=== PATIENT | male | born 1980 | race American Indian/Alaskan Native ===

== ENCOUNTER 2018-11-13 08:25 | Day surgery (SDC) | payer BC ==
--- NOTE | 2018-11-13 09:38 | Anesthesia Consultation ---
Anesthesia Consult and Med Hx Date of service: 11/13/18 - Airway Anesthetic Teeth Evaluation: Good ROM Head & Neck: Adequate Mental/Hyoid Distance: Adequate Mallampati Class: Class II Intubation Access Assessment: Good - Pulmonary Exam CTA: Yes - Cardiac Exam Cardiac Exam: No Murmur - Pre-Operative Health Status ASA Pre-Surgery Classification: ASA2 Proposed Anesthetic Plan: General - Pulmonary Hx Smoking: Yes (SMOKED OFF/ON X20YRS STOPPED 3YRS AGO) Hx Sleep Apnea: Yes (DOES NOT USE CPAP) - Cardiovascular System Hx Hypertension: Yes - Other Systems Hx Cancer: No
--- NOTE | 2018-11-13 09:38 | Anesthesia Day of Surgery ---
Anesthesia Day of Surgery - Day of Surgery Patient Examined: Yes Patient H&P Reviewed: Yes Patient is NPO: Yes
[2018-11-13] MEDS ORDERED: PEPCID IV NR (10:00)
[2018-11-13] MEDS ORDERED: LACTATED RINGERS 1,000 ML IV SCH (10:00)
[2018-11-13] MEDS ORDERED: ANCEF/STERILE WATER 2 GM/20 ML IV NR (10:00)
[2018-11-13] MEDS ORDERED: VERSED IV NR (10:00)
[2018-11-13] MEDS ORDERED: SUBLIMAZE ONE ×2 (10:25→10:26)
[2018-11-13] MEDS ORDERED: XYLOCAINE MPF 2% ONE (10:25)
[2018-11-13] MEDS ORDERED: DIPRIVAN 10 MG/ML IV ONE (10:26)
[2018-11-13] MEDS ORDERED: OMNIPAQUE (300 MG) IR ONE (11:11)
[2018-11-13 12:22] VITALS: BP 126/61
--- NOTE | 2018-11-13 13:56 | Post Operative Note ---
Date of procedure: 11/13/18 Pre-op diagnosis: heme Post-op diagnosis: same Findings: neg Procedure: cysto rpg bx Anesthesia: GETA Surgeon: ANA SANTANA Estimated blood loss: none Pathology: list Specimen disposition: to lab (bladder) Condition: stable Disposition: PACU
--- NOTE | 2018-11-13 13:57 | Discharge Summary ---
Short Stay Discharge Plan Activity: other (no straining ) Weight Bearing Status: Full Weight Bearing Diet: low fat, low cholesterol, low salt Special Instructions: other (inc fluids ) Durable Medical Equipment Needed Upon Discharge: other Follow up with: JONATHON HOUSER MD [Primary Care Provider] - 7 Days ANA SANTANA MD [Staff Physician] - 10 Days Forms: [facility]
--- NOTE | 2018-11-13 14:09 | Operative Report ---
PREOPERATIVE DIAGNOSIS: Hematuria. POSTOPERATIVE DIAGNOSIS: Hematuria. PROCEDURE: Cystoscopy retrogrades biopsy, fulguration. SURGEON: Alonzo Wyatt MD ANESTHESIA: General. FINDINGS: This patient with atypical cytology and hematuria, he now presents for cystoscopy. DESCRIPTION OF PROCEDURE: The patient was brought to the operating room and placed in supine position on the operating table. Following induction of anesthesia, placed in lithotomy position, prepped and draped in usual sterile fashion. Cystourethroscopy showed no bladder lesions. There was minimal erythema. It all looked benign. Retrograde showed good filling, good drainage bilaterally. Urine was obtained for cytology. A small, basically random biopsy was obtained. The patient tolerated the procedure well. Area was cauterized. Family notified, brought to recovery room without a catheter in stable condition. JOB# [id number] MAYRA/YONAS
--- NOTE | 2018-11-14 07:39 | Fluoroscopy Report ---
FLUOROSCOPY RETROGRADE UROGRAPHY: HISTORY: Hematuria. FINDINGS: Fluoroscopy was provided by radiology during retrograde urography by the urologist. 6 fluoroscopic images were captured. There is adequate filling of the ureters and intrarenal collecting systems with no filling defects or anatomic abnormalities identified. Please correlate with the procedural report if needed. IMPRESSION: Retrograde pyelograms within normal limits.
== END 2018-11-13 08:26 | disposition home or self-care (01) ==
LOC: OR 08:25
PROVIDERS: ATTEND Urology
DX: N30.21 Other chronic cystitis with hematuria (principal); I10 Essential (primary) hypertension; G47.30 Sleep apnea, unspecified; K21.9 Gastro-esophageal reflux disease without esophagitis; Z98.890 Other specified postprocedural states; Z79.899 Other long term (current) drug therapy; Z87.891 Personal history of nicotine dependence
CPT/HCPCS: 52224; 74420; 88112; 88305; C1758; J0690; J2250; J2704; J3010; J7120; Q9967